=== PATIENT | female | born 2000 | race Hispanic/Latino ===

== ENCOUNTER 2022-02-27 20:25 | Emergency (ER) | payer OTHER ==
[~2022-02-27] VITALS: Ht 160 cm; Wt 100.2 kg
[2022-02-27] MEDS ORDERED: KETOROLAC 30MG VIAL (30MG/ML) ONE (21:24)
[2022-02-27] MEDS ORDERED: CYCLOBENZAPRINE HCL 10 MG TABLET ONE (21:24)
[2022-02-27] MEDS ORDERED: 0.9% NACL 500ML IV.SOLN 500 ML IV ONE (21:25)
[2022-02-27] MEDS ORDERED: 0.9%NACL 1000ML 1,000 ML IV SCH (21:30)
[2022-02-27] MEDS ORDERED: KETOROLAC 30MG VIAL (30MG/ML) IM ONE (21:30)
[2022-02-27] MEDS ORDERED: PROMETHAZINE HCL 25 MG/ML 1ML AMPULE IM ONE (21:30)
[2022-02-27] MEDS ORDERED: CYCLOBENZAPRINE HCL 10 MG TABLET PO ONE (21:30)
[2022-02-27 21:45] LABS: BASOPHILS % (AUTO) 0.4 % (0.0-5.0); EOSINOPHILS % (AUTO) 2.7 % (0.0-8.0); HEMATOCRIT 38.3 % (36-48); LYMPHOCYTES % (AUTO) 36.6 % (21.0-51.0); MEAN CORPUSCULAR HGB CONC 31.9 g/dL (32.0-36.0); MEAN CORPUSCULAR VOLUME 84.7 fL (80-100); MONOCYTES % (AUTO) 5.9 % (3.0-13.0); PLATELET COUNT (AUTO) 291 K/uL (130-400); RED BLOOD CELL COUNT(AUTO) 4.52 MIL/uL (4.00-5.50); WHITE BLOOD COUNT (AUTO) 16.2 K/uL (4.8-10.8)
[2022-02-27 21:46] LABS: APPEARANCE,URINE Clear (CLEAR); BILIRUBIN,URINE Negative (NEGATIVE); COLOR,URINE Yellow (YELLOW); GLUCOSE, URINE (UA) Negative (NEGATIVE); KETONES,URINE Negative (NEGATIVE); LEUKOCYTE ESTERASE ,URINE Trace (NEGATIVE); NITRATE,URINE Negative (NEGATIVE); OCCULT BLOOD,URINE Negative (NEGATIVE); PROTEIN,URINE Negative (NEGATIVE); UROBILINOGEN,URINE 0.2 mg/dL (0.2-1.0)
[2022-02-27 21:49] LABS: HCG,QUAL RESULT NEGATIVE (NEGATIVE)
[2022-02-27 21:58] LABS: BACTERIA,URINE Rare /HPF (None Seen); MUCUS,URINE Few LPF (None Seen); RBC,URINE 0-1 /HPF (0-1); SQUAMOUS EPITHELIAL CELL,UR Few /HPF (0-2)
[2022-02-27 22:07] LABS: CREATININE 0.7 mg/dL (0.5-1.5); POTASSIUM 4.2 mmol/L (3.5-5.1)
[2022-02-27 22:12] LABS: ALBUMIN 3.9 g/dL (3.5-5.0); BILIRUBIN,TOTAL 0.2 mg/dL (0.2-1.0); TOTAL PROTEIN, SERUM 7.9 g/dL (6.0-8.3)
[2022-02-28] MEDS ORDERED: AZITHROMYCIN 250 MG TABLET PO ONE
[2022-02-28] MEDS ORDERED: CEFTRIAXONE 1G VIAL IVP ONE
[2022-02-28 00:38] VITALS: BP 138/75
[2022-02-28] MEDS ORDERED: FIORIT PO (00:46)
== END 2022-02-28 01:29 | disposition home or self-care (01) ==
LOC: EDH 20:25
DX: R51.9 Headache, unspecified (principal); R11.0 Nausea
CPT/HCPCS: 36415 ×2; 70450; 71045; 80053; 81001; 81025; 83605; 85025; 87880; 96361; 96372 ×2; 96374; 99285; J0696; J1885; J7030; J7040